=== PATIENT | female | born 2000 | race Hispanic/Latino ===

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

== ENCOUNTER 2021-10-27 14:57 | Emergency (ER) | payer MEDICAID ==
[~2021-10-27] VITALS: Ht 134.6 cm; Wt 43.1 kg
[~2021-10-27 14:57] MED LIST: LEVO500T90 PO
[2021-10-27 15:52] LABS: APPEARANCE,URINE Clear (CLEAR); BILIRUBIN,URINE Negative (NEGATIVE); COLOR,URINE Yellow (YELLOW); GLUCOSE, URINE (UA) Negative (NEGATIVE); KETONES,URINE Negative (NEGATIVE); LEUKOCYTE ESTERASE ,URINE Trace (NEGATIVE); NITRATE,URINE Negative (NEGATIVE); OCCULT BLOOD,URINE Negative (NEGATIVE); PROTEIN,URINE Negative (NEGATIVE); UROBILINOGEN,URINE 0.2 mg/dL (0.2-1.0)
[2021-10-27 15:55] LABS: HCG,QUAL RESULT NEGATIVE (NEGATIVE)
[2021-10-27 15:59] LABS: BASOPHILS % (AUTO) 0.7 % (0.0-5.0); EOSINOPHILS % (AUTO) 3.2 % (0.0-8.0); HEMATOCRIT 47.2 % (36-48); LYMPHOCYTES % (AUTO) 19.6 % (21.0-51.0); MEAN CORPUSCULAR HEMOGLOBIN 22.6 pg (27.0-33.0); MEAN CORPUSCULAR HGB CONC 29.9 g/dL (32.0-36.0); MEAN CORPUSCULAR VOLUME 75.8 fL (80-100); MONOCYTES % (AUTO) 7.7 % (3.0-13.0); NEUTROPHILS % (AUTO) 68.5 % (40.0-77.0); PLATELET COUNT (AUTO) 355 K/uL (130-400); RED BLOOD CELL COUNT(AUTO) 6.23 MIL/uL (4.00-5.50); RED CELL DISTRIBUTION WIDTH 17.6 % (11.0-15.5)
[2021-10-27 16:03] LABS: BACTERIA,URINE None Seen /HPF (None Seen); MUCUS,URINE Few LPF (None Seen); RBC,URINE 0-1 /HPF (0-1); SQUAMOUS EPITHELIAL CELL,UR Moderate /HPF (0-2)
[2021-10-27 16:09] LABS: CREATININE 0.7 mg/dL (0.5-1.5); POTASSIUM 3.6 mmol/L (3.5-5.1)
[2021-10-27 16:13] LABS: ALBUMIN 4.2 g/dL (3.5-5.0); BILIRUBIN,TOTAL 0.4 mg/dL (0.2-1.0); TOTAL PROTEIN, SERUM 8.4 g/dL (6.0-8.3)
[2021-10-27] MEDS ORDERED: SIME80TA12 PO (17:29)
[2021-10-27] MEDS ORDERED: LIDOCAINE HCL 2% VISCOUS 15 ML UDCUP PO ONE (17:30)
[2021-10-27] MEDS ORDERED: MAG/ALUM/SIMETH 30 ML UDCUP PO ONE (17:30)
[2021-10-27] MEDS ORDERED: DICYCLOMINE HCL 10 MG/5 ML ML PO ONE (17:30)
[2021-10-27 18:27] VITALS: BP 105/65
== END 2021-10-27 18:30 | disposition home or self-care (01) ==
LOC: EDH 14:57
DX: R14.0 Abdominal distension (gaseous) (principal)
CPT/HCPCS: 36415; 74018; 80053; 81001; 81025; 83690; 85025

== ENCOUNTER 2024-05-28 19:55 | Inpatient (IN) | payer MEDICAID ==
[~2024-05-28] VITALS: Ht 137.2 cm; Wt 61.7 kg
[~2024-05-28 19:55] MED LIST changes: +LEVO-70 PO; -LEVO500T90 PO; +SIME80TA12 PO
[2024-05-28] MEDS ORDERED: NALoxone HCL 0.4 MG/1 ML ML IV PRN (22:30)
[2024-05-28] MEDS ORDERED: ePHEDrine SULFate 50 MG/ML AMPULE IVP PRN (22:30)
[2024-05-28] MEDS ORDERED: PROMETHAZINE HCL 25 MG/ML 1ML AMPULE IM PRN (22:30)
[2024-05-28] MEDS ORDERED: LACTATED RINGERS 500 ML 500 ML IV PRN (22:30)
[2024-05-28 23:11] LABS: APPEARANCE,URINE CLEAR (CLEAR); BILIRUBIN,URINE NEGATIVE (NEGATIVE); COLOR,URINE COLORLESS (YELLOW); GLUCOSE, URINE (UA) NEGATIVE (NEGATIVE); KETONES,URINE NEGATIVE (NEGATIVE); LEUKOCYTE ESTERASE ,URINE NEGATIVE Leu/uL (NEGATIVE); NITRATE,URINE NEGATIVE (NEGATIVE); OCCULT BLOOD,URINE NEGATIVE (NEGATIVE); PH,URINE 6.5 (5.0-8.0); PROTEIN,URINE NEGATIVE (NEGATIVE); UROBILINOGEN,URINE 0.2 mg/dL (0.2-1.0)
[2024-05-28 23:12] LABS: HEMATOCRIT 26.1 % (36-48); MEAN CORPUSCULAR HEMOGLOBIN 16.9 pg (27.0-33.0); MEAN CORPUSCULAR HGB CONC 26.8 g/dL (32.0-36.0); MEAN CORPUSCULAR VOLUME 63.2 fL (79-99); NUCLEATED RED BLOOD CELLS 0.7 % (0.0-0.19); PLATELET COUNT (AUTO) 408 K/uL (130-400); RED BLOOD CELL COUNT(AUTO) 4.13 MIL/uL (4.00-5.50); RED CELL DISTRIBUTION WIDTH 22.6 % (11.0-15.5)
[2024-05-28 23:16] LABS: ADD UA MICROSCOPIC YES
[2024-05-28 23:17] LABS: BACTERIA,URINE RARE /HPF (None Seen); MUCUS,URINE RARE LPF (None Seen); RBC,URINE 0-1 /HPF (0-1); SQUAMOUS EPITHELIAL CELL,UR RARE /HPF (0-2)
[2024-05-28 23:33] LABS: CREATININE 0.6 mg/dL (0.5-1.0); POTASSIUM 3.7 mmol/L (3.5-5.1)
[2024-05-28 23:39] LABS: ALBUMIN 2.6 g/dL (3.5-5.0); BILIRUBIN,TOTAL 0.4 mg/dL (0.2-1.0); TOTAL PROTEIN, SERUM 6.8 g/dL (6.0-8.3); URIC ACID 3.1 mg/dL (2.6-7.2)
[2024-05-28 23:56] LABS: AMPHET/METH SCREEN,URINE NEGATIVE (NEGATIVE); BARBITURATE SCREEN, URINE NEGATIVE (NEGATIVE); BENZODIAZEPINES SCREEN,URINE NEGATIVE (NEGATIVE); CANNABINOID SCREEN,URINE NEGATIVE (NEGATIVE); COCAINE SCREEN,URINE NEGATIVE (NEGATIVE); OPIATE SCREEN,URINE NEGATIVE (NEGATIVE); PHENCYCLIDINE SCREEN,URINE NEGATIVE (NEGATIVE)
[2024-05-29] LABS: HIV 1&2 ANTIBODY Non-Reactive (Negative); HIV-1 p24 Antigen Non-Reactive (Negative)
[2024-05-29] MEDS: LACTATED RINGERS 1000ML 1,000 ML IV PRN (05:37)
[2024-05-29 07:24] LABS: RAPID PLASMA REAGIN NONREACTIVE (NONREACTIVE)
[2024-05-29] MEDS: MEPERIDINE-PF 50 MG/ML SYG IVP PRN (07:31)
--- NOTE | 2024-05-29 07:32 | NUR ---
PATIENT REFUSED PHENERGAN ORDERED BY MD TO BE GIVEN WITH DEMEROL. EDUCATED PT ON MEDICATION REASONING PT STILL REFUSED
[2024-05-29] MEDS ORDERED: FENTanyl CITRate PF 50 MCG/1 ML 2ML VIAL ONE (09:47)
[2024-05-29] MEDS ORDERED: LIDOCAINE HCL 1% 20 ML VIAL ONE (11:27)
[2024-05-29] MEDS ORDERED: MISOPROSTOL 200 MCG TABLET ONE (11:27)
[2024-05-29] MEDS ORDERED: DIPH,PERTUSS(ACELL),TET VAC/PF 0.5 ML VIAL IM PRN (13:00)
[2024-05-29] MEDS ORDERED: MEASLES/MUMPS/RUBELLA VACCINE, LIVE 0.5 ML/VIAL SQ PRN (13:00)
[2024-05-29] MEDS ORDERED: acetaMINOPHEN WITH coDEINE 1 TAB TAB PO PRN (13:00)
[2024-05-29] MEDS ORDERED: BENZOCAINE/LANOLIN/ALOE VERA 60 ML AEROSOL TP PRN (13:00)
[2024-05-29] MEDS ORDERED: ibuPROFEN 600 MG TABLET PO PRN (13:00)
[2024-05-29] MEDS ORDERED: acetaMINOPHEN 325 MG TAB PO PRN (13:00)
[2024-05-29] MEDS ORDERED: WITCH HAZEL 1 PAD TP PRN (13:00)
[2024-05-29] MEDS ORDERED: LANOLIN 30GM OINTMENT TP PRN (13:00)
[2024-05-29 14:25] LABS: MEAN CORPUSCULAR HGB CONC 26.8 g/dL (32.0-36.0); MEAN CORPUSCULAR VOLUME 63.5 fL (79-99); NUCLEATED RED BLOOD CELLS 0.2 % (0.0-0.19); RED BLOOD CELL COUNT(AUTO) 3.94 MIL/uL (4.00-5.50); RED CELL DISTRIBUTION WIDTH 22.1 % (11.0-15.5); WHITE BLOOD COUNT (AUTO) 26.8 K/uL (4.8-10.8)
[2024-05-29 14:35] VITALS: BP 129/68; PULSE 109; RESP 18; TEMP 98.1
--- NOTE | 2024-05-29 14:35 | NUR ---
NOTIFIED DR. GOLDBERG CALLED TO NOTIFY OF 2 HOUR H&H . MAY TRANSFUSE 2 UNITS OR GIVE PT OPTION, DEPENDING HOW SHE FEELS PER DR. GOLDBERG
--- NOTE | 2024-05-29 14:43 | NUR ---
PT REFUSED BLOOD TRANSFUSION PATIENT REFUSED BLOOD TRANSFUSION AT THIS TIME. Shaista CASILLAS RN WITNESSED REFUSAL. EDUCATED PT ON THE IMPORTANCE OF THE BLOOD TRANSFUSION BUT PT CONTINUED TO REFUSE. PT DENIES DIZZINESS OR LIGHTHEADEDNESS OR DISCOMFORT. PT WAS EDUCATED ON SIGNS AND SYMPTOMS OF ANEMIA AND ABNORMAL BLEEDING. PT VERBALIZED UNDERSTANDING. PT WAS ADVS TO REPORT ANY SIGNS AND SYMPTOMS. PT VERBALIZED UNDERSTANDING.
--- NOTE | 2024-05-29 14:46 | NUR ---
DR. GOLDBERG NOTIFIED OF BLOOD TRANSFUSION REFUSAL. NO NEW ORDERS GIVEN.
--- NOTE | 2024-05-29 15:18 | NUR ---
DR GOLDBERG NOTIFIED OF PATIENT'S WBC AT 26.8; NO NEW ORDERS RECEIVED.
[2024-05-29 16:00] VITALS: BP 95/56; PULSE 94; RESP 18; TEMP 98.1
[2024-05-29] MEDS ORDERED: FERR-82 PO (18:46)
[2024-05-29] MEDS ORDERED: PREN1TAB80 PO (18:46)
--- NOTE | 2024-05-29 19:00 | NUR ---
SHIFT CHANGE REPORT GIVEN TO Mitchel LEÓN RN FOR CONTINUITY OF PATIENT CARE.
[2024-05-29 19:10] VITALS: BP 131/73; PULSE 86; RESP 20; TEMP 98
--- NOTE | 2024-05-29 19:10 | NUR ---
ASSESSMENT DONE, PT HOLDING BABY WITH SIGNIFICANT OTHER AT BEDSIDE. VSS . PATIENT OFFERED BLOOD TO TRANSFUSE, PT DECLINED, PT REMINDED TO ASK FOR ASSISTANCE IF FEELING DIZZY OR WEAK . PT REMINDED WHERE CALL LIGHTS WERE IN BATHROOM AND SHOWER , PT VERBALIZED UNDERSTANDING.
[2024-05-29] MEDS: doCUSate SODIUM 100 MG CAP PO SCH (19:49)
--- NOTE | 2024-05-29 19:50 | NUR ---
PT GIVEN VERBAL AND WRITTEN DISCHARGE INSTRUCTIONS , PT VERBALIZED UNDERSTANDING , PT AGAIN OFFERED BLOOD TO TRANSFUSE AND DECLINED . IV TO SL , PT ENQUIRED WHY ACCESS WAS BEING LEFT EXPLAINED TO PT THAT IT WAS FOR SAFETY IN CASE EMERGENCY ACCESS WAS NEEDED PT VERBALIZED UNDERSTANDING.
[2024-05-29 23:03] VITALS: BP 100/61; PULSE 101; RESP 20; TEMP 98.4
--- NOTE | 2024-05-29 23:05 | NUR ---
PATIENT SLEEPING SIGNIFICANT OTHER CARING FOR BABY, VITAL SIGNS DONE, INFORMED PT OF HR OF 101 PROBABLE INDICATOR OF ANEMIA, PT ASKED IF SHE FELT FAINT OR DIZZY , PT DENIES SYMPTOMS, PT INSTRUCTED TO GET UP SLOWLY SO TO PREVENT POSTURAL HYPOTENSION , TO PREENT FALLS, PT NODDED UNDERSTANDING.
[2024-05-30 03:53] VITALS: BP 116/69; PULSE 84; RESP 20; TEMP 98.1
[2024-05-30 06:35] LABS: BASOPHILS % (AUTO) 0.6 % (0.0-5.0); EOSINOPHILS % (AUTO) 2.3 % (0.0-8.0); HEMATOCRIT 23.9 % (36-48); IMMATURE GRANULOCYTE ABSOLUTE 0.36 K/uL (0-1); LYMPHOCYTES # (AUTO) 3.5 K/uL (1.0-4.8); MEAN CORPUSCULAR HEMOGLOBIN 17.2 pg (27.0-33.0); MEAN CORPUSCULAR HGB CONC 27.2 g/dL (32.0-36.0); MEAN CORPUSCULAR VOLUME 63.4 fL (79-99); MONOCYTES # (AUTO) 1.3 K/uL (0.1-1.0); MONOCYTES % (AUTO) 7.5 % (3.0-13.0); NEUTROPHILS % (AUTO) 67.6 % (40.0-77.0); NUCLEATED RED BLOOD CELLS 0.3 % (0.0-0.19); PLATELET COUNT (AUTO) 340 K/uL (130-400); RED BLOOD CELL COUNT(AUTO) 3.77 MIL/uL (4.00-5.50); RED CELL DISTRIBUTION WIDTH 22.2 % (11.0-15.5); WHITE BLOOD COUNT (AUTO) 17.7 K/uL (4.8-10.8)
--- NOTE | 2024-05-30 06:45 | NUR ---
HGB 6.5, PATIENT ADVISED OF LOW HEMOGLOBIN, EXPLAINED TO PATIENT SHE MIGHT EXPERIENCE BAD HEADACHES, DIZZINESS AND OR WEAKNESS, PT DECLINED TRANSFUSION. PT WOULD NOT GIVE A REASON TO WHY. DR GOLDBERG IS AWARE OF PATIENT'S PREVIOUS REPEATED REFUSALS OF BLOOD. PATIENT ASKED IF SHE WOULD TAKE ORAL IRON, AND ORAL B12 PT STATED YES, WILL ENDORSE TO DAY SHIFT NURSE .
[2024-05-30 07:30] VITALS: BP 107/55; PULSE 89; RESP 18; TEMP 97.9
--- NOTE | 2024-05-30 07:45 | NUR ---
IN TO FLUSH PATIENT'S IV SITE IN PREPARATION FOR BLOOD TRANSFUSION, UPON FLUSHING IV WITH NS, NOTE IV LEAKING AND PATIENT WITH COMPLAINT OF VERY PAINFUL WHEN FLUSHING. PATIENT REQUESTING TO REMOVE IV, REFUSED RE-STARTING A NEW IV SITE, AND REFUSED BLOOD TRANSFUSION. STATES SHE FEELS FINE, DENIES ANY SYMPTOMS, STATES SHE HAS BEEN WITH ANEMIA FOR A WHILE AND IS FINE. STATES SHE HAS BEEN AMBULATING WELL INDEPENDENTLY WITHOUT ANY SYMPTOMS. PATIENT; HOWEVER, DOES STATE THAT SHE IS ACCEPTING TO RECEIVE THE RHOGAM. INFORMED PATIENT THAT WILL NOTIFY DR GOLDBERG. PATIENT VERBALIZED UNDERSTANDING.
--- NOTE | 2024-05-30 07:48 | NUR ---
CALLED AND SPOKE WITH DR GOLDBERG, NOTIFIED OF LAB RESULTS, WBC 17.7, HGB 6.5, HCT 23.9, PLATELETS 340. NOTIFIED THAT THIS MORNING AT 0700, ENERGY CONSERVATION REPRESENTATIVE NURSE Mitchel LEÓN RN REPORTED TO ME THAT UPON GETTING REFUSAL OF BLOOD TRANSFUSION WITH PATIENT, PATIENT THEN STATED SHE NOW ACCEPTING TRANSFUSION, PATIENT STATED SHE DID NOT WANT ANOTHER IV STARTED BUT INFORMED HER THAT THE CURRENT IV SITE WOULD BE THE ONE TO USE FOR TRANSFUSION. PATIENT THEN ACCEPTING TRANSFUSION. HOWEVER, UPON MY ASSESSMENT, FLUSHED IV SITE IN PREPARATION FOR BLOOD TRANSFUSION AND NOTE THE 18G TO HER LEFT FA LEAKING AND PATIENT STATES IS VERY PAINFUL WHILE FLUSHING IV. PATIENT REQUESTING TO REMOVE IV, REFUSING A RE-START OF A NEW IV SITE, AND REFUSED BLOOD TRANSFUSION. PATIENT STATES SHE FEELS FINE, THAT SHE HAS BEEN WITH ANEMIA AND IS FINE, DENIES ANY SYMPTOMS. PATIENT HAS BEEN AMBULATING WELL INDEPENDENTLY WITHOUT ANY SYMPTOMS. V/S WNL. PATIENT STATES THAT SHE IS ACCEPTING TO RECEIVE THE RHOGAM. PER DR GOLDBERG, OKAY TO OBTAIN REFUSAL FORM FOR BLOOD TRANSFUSION. PER DR GOLDBERG, HE WILL BE IN TO SEE PATIENT LATER TODAY. Addendum: 05/30/24 at 0907 by ALEX CASILLAS RN RN Amended: Links added.
[2024-05-30 10:28] VITALS: BP 128/76; PULSE 90; RESP 18; TEMP 98.1
--- NOTE | 2024-05-30 10:30 | NUR ---
RHOGAM GIVEN ORDERED. PATIENT TOLERATED WELL. SEE CHART FOR TRANSFUSION CRITERIA, TRANSFUSION SERVICES REPORT, AND CONTROL FORMS. Addendum: 05/30/24 at 1130 by ALEX CASILLAS RN RN Amended: Links added.
[2024-05-30 12:05] VITALS: BP 116/73; PULSE 102; RESP 18; TEMP 98
--- NOTE | 2024-05-30 13:20 | NUR ---
PER D/C SUMMARY, PATIENT MAY TAKE MOTRIN OTC FOR CRAMPING/PAIN. SEE D/C SUMMARY WRITTEN BY DR GOLDBERG IN CHART.
--- NOTE | 2024-05-30 13:20 | NUR ---
CALLED AND SPOKE WITH DR GOLDBERG TO FOLLOW UP WHEN ROUNDING TODAY. PER , T.O./READ BACK TO DISCHARGE PATIENT HOME, FOR PATIENT TO FOLLOW UP WITH HIM AT HIS OFFICE IN 2 WEEKS, AND FOR PATIENT TO CONTINUE TAKING HER IRON SUPPLEMENTS HE PREVIOUSLY PRESCRIBED. Addendum: 05/30/24 at 1325 by ALEX CASILLAS RN RN Amended: Links added. Addendum: 05/30/24 at 1328 by ALEX CASILLAS RN RN PER , ALSO CONTINUE WITH PNV.
--- NOTE | 2024-05-30 14:00 | NUR ---
DISCHARGE INSTRUCTIONS DISCHARGE INSTRUCTIONS REVIEWED AND GIVEN TO PATIENT. PATIENT VERBALIZED UNDERSTANDING. PATIENT'S S/O AND STEP MOTHER AT BEDSIDE.
--- NOTE | 2024-05-30 14:08 | NUR ---
DISCHARGE PATIENT DISCHARGED HOME IN STABLE CONDITION, PATIENT TRANSPORTED VIA WHEELCHAIR WITH HER BABY IN HER ARMS TO THEIR PRIVATE VEHICLE BY PAMELA THOMPSON. PATIENT'S S/O AND HER STEP MOTHER AT SIDE AND DRIVING THEM HOME.
== END 2024-05-30 14:08 | disposition home or self-care (01) | DRG 560 ==
LOC: LDH 22:17 → WSH 05-29 14:42
PROVIDERS: ADMIT Internal Medicine; ATTEND Internal Medicine
PROC: 10E0XZZ Delivery of Products of Conception, External Approach (ICD-10-PCS; principal; 2024-05-29)
PROC: 10907ZC Drainage of Amniotic Fluid, Therapeutic from Products of Conception, Via Natural or Artificial Opening (ICD-10-PCS; 2024-05-29)
PROC: 3E0R3BZ Introduction of Anesthetic Agent into Spinal Canal, Percutaneous Approach (ICD-10-PCS; 2024-05-29)
PROC: 00HU33Z Insertion of Infusion Device into Spinal Canal, Percutaneous Approach (ICD-10-PCS; 2024-05-29)
PROC: 3E0334Z Introduction of Serum, Toxoid and Vaccine into Peripheral Vein, Percutaneous Approach (ICD-10-PCS; 2024-05-30)
PROC: 30233S1 Transfusion of Nonautologous Globulin into Peripheral Vein, Percutaneous Approach (ICD-10-PCS; 2024-05-30)
DX: O36.5930 Maternal care for other known or suspected poor fetal growth, third trimester, not applicable or unspecified (principal); Z37.0 Single live birth; O99.02 Anemia complicating childbirth; Z3A.38 38 weeks gestation of pregnancy
CPT/HCPCS: 36415; 80053; 80305; 81001; 83033; 84550; 85025; 85027; 85384; 86592; 86701; 86850; 86900; 86901; 86923; 87340; 87390; A4314; G0378; J2175; J2550; J2791; J2795; J3010; J7120